=== PATIENT | male | born 1965 | race Caucasian/White ===

== ENCOUNTER 2019-10-29 14:53 | Emergency (ER) | payer BC, SELFPAY ==
[2019-10-29 15:05] VITALS: BP 160/78; PULSE 74; RESP 18; TEMP 36.4; O2SAT 99
--- NOTE | 2019-10-29 15:06 | ED.LOWEXIN ---
HPI - Extremity Injury (Lower) General Chief Complaint: Extremity Injury, Lower Stated Complaint: Extremeity injury,lower Time Seen by Provider: 10/29/19 15:07 Source: patient and RN notes reviewed History of Present Illness HPI Narrative: Patient is a 54-year-old male who presents the urgent care with complaints of getting hit by a catfish fin on the inside of the left thigh. Patient states that occurred today at about 9 AM and he is cleaned it with soap and water twice as well as applied Neosporin. Patient states that he has had this in the past, on his hand, and it caused a major infection which was difficult to get rid of. Patient denies of any fever, nausea, vomiting. No other acute complaints. No acute distress noted. Patient read the plan of care. Related Data Home Medications Medication Instructions Recorded Confirmed albuterol sulfate [Ventolin HFA] 2 inh INHALATION Q4-6H PRN 10/29/19 10/29/19 [id number] 2 inh INHALATION DAILY 10/29/19 10/29/19 [Trelegy Ellipta] montelukast 10 mg DAILY 10/29/19 10/29/19 tramadol 50 mg BID 10/29/19 10/29/19 Allergies Allergy/AdvReac Type Severity Reaction Status Date / Time lisinopril Allergy Intermediate cough Verified 10/29/19 15:01 Penicillins Allergy Mild unknown Verified 10/29/19 15:01 Review of Systems Review of Systems: Narrative: CONSTITUTIONAL: Denies fever, chills, or sweats. EYES: Denies visual changes, redness, or discharge. ENT: Denies rhinorrhea, congestion, sore throat, or otalgia. CARDIOVASCULAR: Denies chest pain, palpitations, or edema. RESPIRATORY: Denies cough or dyspnea. GASTROINTESTINAL: Denies abdominal pain, nausea, vomiting, or diarrhea. GENITOURINARY: Denies dysuria or hematuria. SKIN: Reports of an open wound to the left thigh from a catfish fin MUSCULOSKELETAL: Denies back pain, joint pain, or myalgia. NEUROLOGIC: Denies headache, numbness, or weakness. All other systems reviewed are negative, except as documented in HPI. [facility] Past Medical History Medical History (Updated 10/29/19 @ 15:20 by CARY Fletcher) COPD (chronic obstructive pulmonary disease) Mixed hyperlipidemia Morbid (severe) obesity due to excess calories Obesity (BMI 35.0-39.9 without comorbidity) Umbilical hernia Social History Social History (Updated 10/10/19 @ 13:08 by Concepcion Simmons) Social History: Smoking status: Former smoker Tobacco type: cigarettes Second hand tobacco smoke exposure: No Smoking end date: 02/23/09 Alcohol intake: current Drinks per week: 5 Substance use: never Substance use type: does not use Gender identity (if verbalized by the patient): Male Comments At the time of my signature, I reviewed and agree with the nursing past medical, surgical, social, and family history. There is no relevant family history pertinent to the patient complaint. Exam Narrative: Exam Narrative: GENERAL: This is a well-nourished, well-developed patient, in no apparent distress. HEAD: normocephalic, atraumatic. EYES: PERRL. Sclera clear/white. Vision is grossly intact. EARS: External ears normal NOSE: External nose normal with no obvious nasal discharge, nares without redness, no rhinorrhea. THROAT: Mucous membranes moist NECK: Neck supple SKIN: 1 cm irregular open wound noted to the left lower medial thigh with scant blood in 3 cm surrounding erythema NEURO: awake, alert, and oriented to person, place and time. There were no obvious focal neurologic abnormalities. EXTREMITIES: No clubbing, cyanosis, or edema. No joint tenderness, effusion, or edema noted. No calf tenderness. Negative Homans sign bilaterally. Course Vital Signs Vital signs: Vital Signs Temperature 97.6 F 10/29/19 15:05 Pulse Rate 74 10/29/19 15:05 Respiratory Rate 18 10/29/19 15:05 Blood Pressure 160/78 H 10/29/19 15:05 Pulse Oximetry 99 10/29/19 15:05 Temperature 97.6 F 10/29/19 15:05 Pulse Rate 74 09/0
== END 2019-10-29 15:28 | disposition home or self-care (01) ==
PROVIDERS: Emergency Provider Nurse Practitioner Family; PCP Family Medicine
DX: T14.8XXA Other injury of unspecified body region, initial encounter (principal); W56.59XA Other contact with other fish, initial encounter; Z87.891 Personal history of nicotine dependence; J44.9 Chronic obstructive pulmonary disease, unspecified; E78.2 Mixed hyperlipidemia; E66.01 Morbid (severe) obesity due to excess calories; Z68.41 Body mass index [BMI] 40.0-44.9, adult
CPT/HCPCS: 99213; G0463

== ENCOUNTER → 2020-02-13 11:32 | Outpatient (CLI) | payer BC, SELFPAY ==
--- NOTE | ~2020-02-13 | XR_ITS ---
EXAMINATION: XR lumbar spine 2-3V DATE: 02/13/2020 11:46 INDICATION: Left-sided low back pain TECHNIQUE: Anteroposterior and lateral views of the lumbar spine, and cone-down lateral view of the l umbosacral junction were obtained. COMPARISON: 02/27/2016 FINDINGS: There is no fracture, dislocation, or subluxation. The vertebral body heights and alignment are normal. There is mild loss of intervertebral disc space height at multiple levels. Small degener ative osteophytes project from the anterior endplates of multiple vertebral bodies. There is moderate facet osteoarthritis of the lower lumbar spine. Calcified atherosclerosis is noted. The bowel gas pa ttern is normal. IMPRESSION: 1. Mild lumbar spondylosis without acute findings or significant interval change. Reviewed, dictated and finalized at location A. [employer] IMPRESSION: 1. Mild lumbar spondylosis without acute findings or significant interval morro posada
== END ==
PROVIDERS: PCP Family Medicine; Visit Provider Family Medicine
DX: M47.896 Other spondylosis, lumbar region (principal)
CPT/HCPCS: 72100

== ENCOUNTER 2022-07-16 09:50 | Outpatient (CLI) | payer BC, SELFPAY ==
--- NOTE | ~2022-07-16 | CT_ITS ---
EXAMINATION: CT lung screening DATE: 07/16/2022 10:15 INDICATION: Personal history of nicotine dependence. TECHNIQUE: Computed tomography (CT) of the chest was performed without intravenous contrast. The dose -length product was 499.78 mGy-cm. Automated exposure control and iterative reconstruction technique were employed. COMPARISON: CT dated 07/16/2022 FINDINGS: There is emphysema. No endobronchial lesions. No endobronchial lesions left lower lobe atelectasis. No thoracic lymphaden opathy. Heart size is normal. The upper abdomen is unremarkable. No endobronchial lesions. No pneumot horax. No suspicious pulmonary nodules or masses. No focal lytic or blastic lesions. There is atheros clerosis of the aorta and coronary arteries. IMPRESSION: 1. Lung-RADS category 1: Negative. Continue annual screening with noncontrast low-dose chest CT in 12 months. Reviewed, dictated and finalized at location B. IMPRESSION: 1. Lung-RADS category 1: Negative. Continue annual screening with noncontrast l ow-dose chest CT in 12 months.
== END 2022-07-16 09:51 | disposition home or self-care (01) ==
PROVIDERS: PCP Family Medicine; Visit Provider Family Medicine
DX: Z12.2 Encounter for screening for malignant neoplasm of respiratory organs (principal); Z87.891 Personal history of nicotine dependence
CPT/HCPCS: 71271

== ENCOUNTER 2023-11-19 12:33 | Outpatient (CLI) | payer BC, SELFPAY ==
--- NOTE | ~2023-11-19 | CT_ITS ---
EXAMINATION: CT lung screening DATE: 11/19/2023 12:54 INDICATION: F17.210 - Nicotine dependence, cigarettes, uncomplicated TECHNIQUE: Computed tomography (CT) of the chest was performed without intravenous contrast. Addition al 3D reconstructions utilizing coronal maximum intensity projection (MIP) were performed. Automated exposure control and iterative reconstruction technique were employed. The dose-length product was 54 0.13 mGy-cm. COMPARISON: None FINDINGS: Mild emphysema. Tiny calcified nodule in the right middle lobe consistent with old granulomatous dise ase. No noncalcified pulmonary nodules, pneumonia, pulmonary edema or pleural effusion. Heart size is normal. Small CHRONIC corner artery calcific lesion. No pericardial effusion. 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 No pathologically enlarged thoracic lymphadenopathy. Visualized upper abdomen is unremarkable. Mild thoracic spondylos is. IMPRESSION: 1. Lung-RADS category 1: Negative. Continue annual screening with noncontrast low-dose chest CT in 12 months. Reviewed, dictated and finalized at location A. IMPRESSION: 1. Lung-RADS category 1: Negative. Continue annual screening with noncontrast l ow-dose chest CT in 12 months.
== END 2023-11-19 12:34 | disposition home or self-care (01) ==
PROVIDERS: PCP Family Medicine; Visit Provider Physician Assistant
DX: Z12.2 Encounter for screening for malignant neoplasm of respiratory organs (principal); Z87.891 Personal history of nicotine dependence
CPT/HCPCS: 71271